=== PATIENT | female | born 1985 | race Caucasian/White ===

== ENCOUNTER 2017-01-20 15:03 | Emergency (ER) | payer OTHER ==
[~2017-01-20] VITALS: Ht 152.4 cm; Wt 60.0 kg
[~2017-01-20 15:03] MED LIST: ASPIR-LOW81 MG PO; ENDOCET 5-3251 EACH PO; IBUPROFEN800 MG PO; LEXAPRO20 MG PO; PRENATAL TABLE1 EAC3 PO
[2017-01-20] MEDS ORDERED: LITE COAT ASPI325 M1 PO (15:28)
[2017-01-20 16:34] VITALS: BP 133/95
== END 2017-01-20 16:35 | disposition home or self-care (01) ==
LOC: EME 15:03
DX: S82.402A Unspecified fracture of shaft of left fibula, initial encounter for closed fracture (principal); W51.XXXA Accidental striking against or bumped into by another person, initial encounter; Y93.89 Activity, other specified
CPT/HCPCS: 99281; 99284

== ENCOUNTER → 2017-01-21 | Outpatient (CLI) | payer OTHER ==
[~2017-01-21] MED LIST changes: +LITE COAT ASPI325 M1 PO
== END | disposition home or self-care (01) ==
LOC: CDC 14:45
DX: R00.1 Bradycardia, unspecified (principal); S82.62XA Displaced fracture of lateral malleolus of left fibula, initial encounter for closed fracture; S93.492A Sprain of other ligament of left ankle, initial encounter
CPT/HCPCS: 93000